=== PATIENT | female | born 1960 | race Caucasian/White ===

== ENCOUNTER 2021-10-29 12:43 | Emergency (ER) | payer MEDICARE, SELFPAY ==
[2021-10-29] VITALS (7 sets, daily range): BP systolic 130–137; BP diastolic 59–84; PULSE 80–97; RESP 18–25; TEMP 36.4; O2SAT 98–100
--- NOTE | ~2021-10-29 | XR_ITS ---
EXAMINATION: XR chest 1V portable DATE: 10/29/2021 13:51 INDICATION: Altered mental status with unconscious episode. TECHNIQUE: frontal view of the chest was obtained. COMPARISON: Chest radiograph dated 12/30/2005 FINDINGS: The lungs remain clear with no focal airspace opacities, pulmonary edema, pleural effusion or pneumot horax. The cardiomediastinal silhouette is normal. Mild to moderate scattered degenerative skeletal c hanges in the spine and bilateral shoulders. IMPRESSION: 1. No acute cardiopulmonary disease. Reviewed, dictated and finalized at location A.
--- NOTE | ~2021-10-29 | CT_ITS ---
EXAMINATION: CT abdomen pelvis w con DATE: 10/29/2021 14:20 INDICATION: left side abdominal pain TECHNIQUE: Computed tomography (CT) of the abdomen and pelvis was performed with 75 mL Omnipaque 300 intravenous contrast. Automated exposure control and iterative reconstruction technique were employed . The dose-length product was 1442.18 mGy-cm. COMPARISON: 06/24/2015. FINDINGS: Lower thorax: Unremarkable Liver: Normal. Biliary/Gallbladder: Gallbladder is absent. No bile duct dilation. Pancreas: No mass or duct dilation. Spleen: Normal. Adrenals:No mass. Kidneys: Punctate nonobstructive right lower pole calcification, no mass or hydronephrosis. GI tract: No small or large bowel dilation. Normal appendix. Mesentery/Peritoneum: No ascites, mass, or free air. Retroperitoneum: No mass. Pelvis: Pelvic organs are within normal limits. Soft Tissues: Soft tissues and body wall unremarkable. Bones: No acute osseous finding. IMPRESSION: No acute abdominopelvic process. Reviewed, dictated and finalized at location K.
--- NOTE | ~2021-10-29 | CT_ITS ---
EXAMINATION: CT brain wo con DATE: 10/29/2021 14:20 INDICATION: alerted mental status . TECHNIQUE: Computed tomography (CT) of the head was performed without intravenous contrast. The mA wa s adjusted according to patient size. Iterative reconstruction technique was employed. The dose-lengt h product was 605.33 mGy-cm. COMPARISON: 05/05/2013. FINDINGS: No acute intracranial hemorrhage or extra-axial fluid collection. No hydrocephalus, mass, or herniation. No acute ischemic infarct. Unremarkable dural venous sinus attenuation. No acute osseous abnormality. Retention cyst or polyp in the inferior left maxillary sinus, opacification of the right middle ethmo id cells, otherwise the aerated spaces are clear. Mild chronic white matter change. Basal ganglia calcification. Atherosclerotic intracranial calcifica tions. IMPRESSION: No acute intracranial process. Reviewed, dictated and finalized at location K.
[2021-10-29 12:59] LABS: Glucose Point of Care 212 mg/dl (65-105)
--- NOTE | 2021-10-29 13:06 | ECG_ITS ---
Measurements Intervals [place] Rate: 83 P: 62 SD: 154 QRS: 37 QRSD: 87 T: 50 QT: 368 QTc: 434 Interpretive Statements SINUS RHYTHM CONSIDER INFERIOR INFARCT, AGE INDETERMINATE BASELINE WANDER- I, III ABNORMAL ECG Electronically Signed On 10-29-2021 16:18:44 CDT by Alexander Villanueva D.O.
--- NOTE | 2021-10-29 13:10 | ED.AMS ---
HPI - Altered Mental Status General Chief Complaint: Altered Mental Status Stated Complaint: ams r/o syncopal episode Time Seen by Provider: 10/29/21 12:56 Source: patient, family, EMS and RN notes reviewed Mode of arrival: EMS Limitations: altered mental status History of Present Illness HPI narrative: This is a 61 year old female with history of hemiplegic migraine, DM, anxiety who presents for evaluation of syncopal episode. Patient's is at bedside. He states patient told him she was going to the bathroom , and he states she seemed to no feel well. He was then told by a bystander that patient passed out in the bathroom , but they were able to catch her. Patient reports she had nonradiating left side chest pain that resolved. She also reports frontal headache that is now resolving. She denies nausea, vomiting, abdominal pain or shortness of breath. Related Data Allergies Allergy/AdvReac Type Severity Reaction Status Date / Time adhesive tape Allergy Intermediate RASH,BLISTE Verified 10/29/21 13:11 RS methocarbamol Allergy Mild Rash Verified 10/29/21 13:11 codeine Allergy Unknown Unknown Verified 10/29/21 13:11 tramadol Allergy Unknown Unknown Verified 10/29/21 13:11 Review of Systems Review of Systems: All systems reviewed & are unremarkable except as noted in HPI and below Constitutional: Constitutional: Denies chills and Reports fatigue Eyes: Eyes: Denies change in vision Cardiovascular: Cardiovascular: Reports chest pain, Denies rapid heart rate and Denies radiating jaw, neck or arm pain Respiratory: Respiratory: Denies cough and Denies dyspnea Gastrointestinal: Gastrointestinal: Reports abdominal pain, Reports nausea and Reports vomiting Musculoskeletal: Musculoskeletal: Denies back pain Neurologic: Reports syncope and Reports headache(s) [facility]LY [facility] Past Medical History Medical History (Updated 10/29/21 @ 16:31 by Liza Dennis MD) Anxiety Asthma Depression Diabetes mellitus Fibromyalgia Hemiplegic migraine Seizure Sleep apnea Surgical History Surgical History (Updated 10/29/21 @ 13:13 by Liza Dennis MD) H/O gastric bypass H/O: hysterectomy Hx of cholecystectomy Social History Social History (Updated 10/29/21 @ 13:13 by Liza Dennis MD) Smoking status: Current every day smoker Alcohol intake: never Exam Const: General: ill appearing Other: patient anxious HENMT: Head: normocephalic and atraumatic Face and sinus: normal facial exam, sinuses nontender and face symmetric Mouth: Yes Normal oral and palatal mucosa present, Yes lip normal, Yes oropharynx normal and Yes moist mucous membranes Throat: posterior oropharynx normal, tonsils normal and uvula midline Eyes: Conjunctivae: conjunctivae normal Pupils: Equal, round and reactive pupils present EOM: EOMs intact bilaterally Resp: Effort & Inspection: normal respiratory effort and no retractions Auscultation: clear to auscultation bilaterally Cardio: Rate: regular rate Rhythm: regular rhythm Heart sounds: no murmurs GI: GI Palp: Yes Soft to palpation, Yes Tenderness to palpation present (GI) (LUQ), No Guarding due to palpation present (GI) and No Rigid due to palpation Auscultation: normal bowel sounds Skin: Rashes: no rashes Neuro: General: moves all extremities Other: generally weak Extrem: General: no pedal edema Psych: Affect: Anxious affect present Course Reevaluation(s) Reevaluation #1: PAtient states she feels much better. She states she has been having abdominal discomfort for past month when she eats. Today after eating a small amount she felt like she needed to have diarrhea. While she was on toilet she started feeling dizzy. Once she stool up to go wash her hands she felt dizzy again and she passed out. Date: 10/29/21 Time: 13:48 Reevaluation #2: PAtient feels better and she is no longer weak. She was able to drink soda and eat pudding. It sounds like patient has va
[2021-10-29] MEDS: SODIUM CHLORIDE 0.9% IV 1,000 ML 999 ML IV CONT ×2 (13:15→14:33)
[2021-10-29 13:29] LABS: Alveolar/Arterial O2 Gradient 10.5 mmHg; Base Excess ABG -4.5 mEq/l (+/-2.0); Device ROOM AIR; Fractional Inspired Oxygen 21 %; HCO3 ABG 19.1 mEq/l (22.0-26.0); Modified Allen's Test Pass; Oxygen Content ABG 13.5 %vol (16.0-22.0); Oxygen Saturation ABG 97.9 % (95.0-100.0); Oxyhemoglobin 94.6 % THb (90.0-100.0); PCO2 ABG 30.1 mmHg (35.0-45.0); PO2 ABG 103.2 mmHg (80.0-100.0); PO2 FiO2 Ratio Arterial Blood 4.91 %; Site Drawn LEFT RADIAL
[2021-10-29 13:33] LABS: Basophils Absolute Auto 0.1 K/mm3 (0.0-0.1); Basophils Percent Auto 0.6 % (0.2-1.2); Eosinophils Absolute Auto 0.2 K/mm3 (0-0.3); Eosinophils Percent Auto 1.6 % (0-4.4); Hematocrit 35.3 % (37.0-47.0); Hemoglobin 10.3 g/dL (12.0-15.0); Immature Granulocyte Absolute 0.03 K/mm3 (0.00-0.031); Immature Granulocyte Percent A 0.3 % (0-0.5); Lymphocytes Absolute Auto 2.45 K/mm3 (0.9-3.2); Lymphocytes Percent Auto 22.2 % (18.3-44.2); Mean Corpuscular HGB Conc 29.2 g/dl (32-36); Mean Corpuscular Hemoglobin 22.2 pg (26-34); Mean Corpuscular Volume 76.1 fl (80-100); Mean Platelet Volume 10.3 fl (7.4-10.4); Monocytes Absolute Auto 0.6 K/mm3 (0.1-0.6); Monocytes Percent Auto 5.5 % (2.6-8.5); Neutrophils Absolute Auto 7.7 K/mm3 (1.3-6.7); Neutrophils Percent Auto 69.8 % (45.5-73.1); Platelet Count Result 429 k/mm3 (150-375); Red Blood Count 4.64 M/mm3 (4.2-5.4); Red Cell Distribution Width 18.3 % (11.5-14.5)
[2021-10-29 13:41] LABS: Acetaminophen < 10 ug/mL (10-30); Alanine Aminotransferase 15 U/L (6-35); Albumin Level 4.8 g/dL (3.5-5.1); Alkaline Phosphatase 149 U/L (38-126); Ammonia < 9 umol/L (9-30); Anion Gap 12 mmol/L (8-16); Aspartate Amino Transferase 22 U/L (14-36); Bilirubin,Total 0.7 mg/dL (0.2-1.3); Blood Urea Nitrogen 13 mg/dL (7-17); Calcium 9.1 mg/dL (8.4-10.2); Carbon Dioxide 22 mmol/L (22-30); Chloride 104 mmol/L (98-107); Estimated CRCL calculation 64 ml/min; Estimated Glomerular Filt Rate 56; Ethanol < 10 mg/dL (<10); Glucose 183 mg/dL (65-110); Magnesium 2.1 mg/dL (1.6-2.3); Potassium 4.8 mmol/L (3.4-5.0); Salicylate < 1.0 mg/dL (2-20); Sodium 138 mmol/L (137-145)
[2021-10-29 13:43] LABS: INR 1.1; Prothrombin Time 13.8 Seconds (11.1-14.7)
[2021-10-29 13:44] LABS: Anisocytosis 2+ (NORMAL); Hypochromasia 1+ (NORMAL); Ovalocytes 1+ (NORMAL); Platelet Estimate Adequate (Adequate)
[2021-10-29 13:44] LABS: Partial Thromboplastin Time 23.6 SECONDS (22.3-36.8)
[2021-10-29 13:45] LABS: D Dimer 0.43 ug/mL (<0.48)
[2021-10-29 13:45] LABS: Schistocytes 1+ (NORMAL)
[2021-10-29 13:51] LABS: Lactic Acid Reflex 2.7 mmol/L (0.7-2.0)
[2021-10-29 13:53] LABS: Troponin I < 0.012 ng/mL (0.000-0.034)
[2021-10-29 14:03] LABS: Mucus Urine Few /lpf; RBC Urine 0-2 /hpf (0-2); Squamous Epithelial Cell Urine Rare /hpf (Few); WBC Urine 0-3 /hpf
[2021-10-29 14:04] LABS: Add Urine Microscopic? YES; Appearance Urine Slightly Cloudy (Clear); Bilirubin Urine 1+ (Negative); Blood Urine Negative (Negative); Color Urine Yellow (Yellow); Glucose Urine UA Negative (Negative); Ketones Urine Trace mg/dL (Negative); Leukocyte Esterase Ur Negative LEU/UL (Negative); Nitrate Urine Negative (Negative); Protein Urine 1+ mg/dL (Negative); Specific Grav Ur >= 1.030 (1.001-1.035); Urobilinogen Urine 0.2 mg/dL (<2.0); pH Urine 5.5 (5.0-9.0)
[2021-10-29 14:10] LABS: Amphetamine Screen Urine Negative (Negative); Barbiturate Screen Urine Negative (Negative); Benzodiazepines Screen Urine Negative (Negative); Cannabinoid Screen Urine Negative (Negative); Cocaine Screen Urine Negative (Negative); Methadone Screen Urine Negative (Negative); Opiate Screen Urine Negative (Negative); Phencyclidine Screen Urine Negative (Negative)
[2021-10-29 16:07] LABS: Lactic Acid Reflex 1.6 mmol/L (0.7-2.0)
[2021-10-29 16:19] LABS: Troponin I < 0.012 ng/mL (0.000-0.034)
[2021-10-29 16:29] LABS: Reflex Lactic Acid Yes or No Add Lactic
== END 2021-10-29 16:47 | disposition home or self-care (01) ==
PROVIDERS: Emergency Provider General Practice; PCP Nurse Practitioner
DX: R55 Syncope and collapse (principal); E86.0 Dehydration; E11.9 Type 2 diabetes mellitus without complications; F41.9 Anxiety disorder, unspecified; M79.7 Fibromyalgia; G47.30 Sleep apnea, unspecified; F17.200 Nicotine dependence, unspecified, uncomplicated; Z98.84 Bariatric surgery status; R94.31 Abnormal electrocardiogram [ECG] [EKG]; Z86.73 Personal history of transient ischemic attack (TIA), and cerebral infarction without residual deficits; Z86.711 Personal history of pulmonary embolism; Z87.442 Personal history of urinary calculi
CPT/HCPCS: 36415; 36600; 51701; 70450; 71045; 74177; 80053; 80307; 81001; 82140; 82805; 82948; 83605; 83735; 84443; 84484; 85025; 85380; 85610; 85730; 93005; 96361; 96365; 99284; J7030; Q9967